=== PATIENT | female | born 1980 | race Caucasian/White ===

== ENCOUNTER → 2017-06-28 | Outpatient (REF) | payer OTHER ==
[~2017-06-28] MED LIST: IBUP80TA PO; PERC5TAB PO
== END ==
LOC: M LAB REF 13:05
PROVIDERS: ATTEND Obstetrics & Gynecology
DX: Z12.4 Encounter for screening for malignant neoplasm of cervix (principal)

== ENCOUNTER 2019-08-17 11:39 | Observation (INO) | payer OTHER ==
[~2019-08-17] VITALS: Ht 160 cm; Wt 86.8 kg
[2019-08-17 12:38] LABS: BASO # 0.1 10^3/uL (0.0-0.2); BASO % 0.5 % (0.0-1.0); EOS # 0.1 10^3/uL (0.0-0.5); EOS % 0.9 % (0.0-3.0); HEMATOCRIT 44.5 % (36.0-47.0); HEMOGLOBIN 14.4 g/dl (12.0-15.5); LYMPH # 1.9 10^3/uL (1.5-5.0); LYMPH % 18.6 % (24.0-44.0); MEAN CORPUSCULAR HEMOGLOBIN 29.7 pg (27.0-33.0); MEAN CORPUSCULAR HGB CONC 32.4 g/dl (32.0-36.5); MEAN CORPUSCULAR VOLUME 91.8 fl (80.0-96.0); MONO # 0.7 10^3/uL (0.0-0.8); MONO % 6.3 % (0.0-5.0); NEUTROPHILS # 7.7 10^3/uL (1.5-8.5); NEUTROPHILS % 73.4 % (36.0-66.0); PLATELET COUNT, AUTOMATED 289 10^3/uL (150-450); RED BLOOD COUNT 4.85 10^6/uL (4.00-5.40); WHITE BLOOD COUNT 10.4 10^3/uL (4.0-10.0)
[2019-08-17 13:07] LABS: ALBUMIN 3.8 GM/DL (3.2-5.2); BILIRUBIN,DIRECT 0.1 MG/DL (0.0-0.2); BILIRUBIN,TOTAL 0.5 MG/DL (0.2-1.0); TOTAL PROTEIN 7.9 GM/DL (6.4-8.2)
--- NOTE | 2019-08-17 14:07 | REP ---
Pelvic sonography: History: Right lower quadrant pain. Question cyst. Findings: Transabdominal and transvaginal scanning are performed. Uterine dimensions are 9.6 x 3.9 x 4.3 cm. Endometrial echo contains linear shadowing IUD in good position. No free fluid is seen. Visualized bladder diallo are smooth. Normal ovaries are seen bilaterally. Right ovarian dimensions are 3.2 x 2.1 x 1.9 cm. Left ovary measures 2.7 x 1.6 x 1.5 cm. Doppler flow is normal to both ovaries. Resistive indices are 0.53 and 0.37 on the right and left respectively. Impression: IUD in good position. Unremarkable ovaries. Normal pelvic sonography. Electronically Signed by René Lozoya MD 08/17/2019 02:20 P
[2019-08-17] MEDS ORDERED: ISOVUE-370 76% 100ML VIAL (Q9967) As Ordered ONE (14:22)
--- NOTE | 2019-08-17 15:02 | REP ---
CT abdomen and pelvis with IV but without oral contrast: History: Right lower quadrant pain. CT contrast dose: 100 ml of intravenous Isovue [address] findings: Digital preliminary camp assistant radiograph demonstrates an intrauterine device projecting in the pelvis. Bowel gas pattern is normal. The lung bases are clear on axial CT images. There is moderate diffuse fatty infiltration of the liver. No focal liver lesion is seen. Spleen is unremarkable. No adrenal lesion is observed. No abnormalities noted in the pancreas or gallbladder. There is a small accessory splenule. There is an obstructive nephrogram effecting the right kidney and there is moderate right-sided hydronephrosis due to an obstructing calculus in the mid ureter at the level of the pelvic inlet. This calculus measures 9.5 mm in greatest diameter. There is periureteral and perinephric stranding. No intrarenal calculus is noted on the right. However, there is a nonobstructive calculus in the lower pole collecting system of the left kidney which measures 6 mm. A normal appendix is seen in the right lower quadrant. No bladder calculus is seen. No abdominal wall defect is observed. No bony destructive lesion is appreciated. Impression: 9.5 mm obstructive right mid ureteral calculus at the pelvic inlet producing moderate right-sided hydronephrosis and an obstructive right-sided nephrogram. There is a 6 mm intrarenal calculus in the lower pole of the left kidney. No left-sided hydronephrosis is seen. IUD is noted. Fatty infiltration of the liver is present. Electronically Signed by René Lozoya MD 08/17/2019 04:06 P
[2019-08-17] MEDS ORDERED: MORPHINE 2 MG/ML 1ML VIAL (J2270) IV PRN (16:00)
[2019-08-17] MEDS ORDERED: NS 1,000 ML IV ONE (16:00)
[2019-08-17] MEDS ORDERED: LORazepam 2 MG/ML VIAL (J2060) IV STA (16:14)
[2019-08-17] MEDS: CIPROFLOXACIN 400 MG in IV 1 EA IV SCH (16:19)
[2019-08-17] MEDS: ONDANSETRON 4MG/2ML VIAL (J2405) IV SCH ×2 (16:19→20:25)
--- NOTE | 2019-08-17 16:21 | IPNPDOC ---
Subjective Date Seen The patient was seen on 08/17/19. Subjective Chief Complaint/HPI Patient complaining of right lower abdomen pain since last 1 week. Pain is sharp, mostly located in right lower right lower abdomen radiating towards back no association with nausea, vomiting, not relieved with meds not exacerbated by any position decided to come to ER. They she was diagnosed with right mid ureter calculus. Urology was called. Urology has advised to admit patient to the hospitalist service and procedure will be performed tonight to remove the stone. At the present time. Patient looks very anxious, crying in bed because of her personal reasons, as per patient, she is very anxious but pain has much resolved with the medications he was to go back to work as soon as possible. General: Denies: ROS Unobtainable, Chills, Night Sweats, Fatigue, Malaise, Normal Appetite, Other Symptoms Constitutional: Denies: Chills, Fever, Malaise, Night Sweats, Weakness, Fatigue, Weight Loss, Lethargy, Other Eyes: Denies: Pain, Vision change, Conjunctivae inflammation, Eyelid inflammation, Redness, Other ENT: Denies: Head Aches, Ear Pain, Dysphagia, Sinus Congestion, Post Nasal Drip, Sore Throat, Epistaxis, Other Symptoms Skin: Denies: Rash, Lesions, Jaundice, Bruising, Itching, Dry, Breakdown, Nail Changes, Other Pulmonary: Denies: Dyspnea, Cough, Pleuritic Chest Pain, Other Symptoms Cardiovascular: Denies: Chest Pain, Palpitations, Orthopnea, Paroxysmal Noc. Dyspnea, Edema, Lt Headedness, Other Symptoms Gastrointestinal: Reports: Other Symptoms (right lower quadrant pain) Genitourinary: Denies: Dysuria, Frequency, Incontinence, Hematuria, Retention, Other Symptoms Hematologic: Denies: Bruising, Bleeding Excessively, Petecchia, Purpura, Enlarged Lymph Nodes, Other Hematologic Endocrine: Denies: Polydipsia, Polyphagia, Polyuria, Heat Intolerance, Cold Intolerance, Other Endocrine Sx Musculoskeletal: Denies: Neck Pain, Back Pain, Shoulder Pain, Arm Pain, Hand Pain, Leg Pain, Foot Pain, Joint Pain, Muscle Pain, Spasms, Other Symptoms Neurological: Denies: Weakness, Numbness, Incoordination, Change in speech, Confusion, Seizures, Other Symptoms Psych: Reports: Anxiety Objective Physical Examination General Exam: Positive: Alert, Cooperative, Other (anxious) Eye Exam: Positive: PERRLA, Conjunctiva & lids normal ENT Exam: Positive: Atraumatic Neck Exam: Positive: Supple Chest Exam: Positive: Clear to auscultation, Normal air movement Heart Exam: Positive: Rate Normal, Normal S1, Normal S2 Abdomen Exam: Positive: Normal bowel sounds, Soft, Tenderness Extremity Exam: Positive: Normal pulses Skin Exam: Positive: Nl turgor and temperature Neuro Exam: Positive: Strength at 5/5 X4 ext, Sensation Intact Psych Exam: Positive: Mental status NL, Oriented x 3 Assessment /Plan Problems (1) Ureterolithiasis Status: Acute Problem Text: 39 years old white female with past medical history of no significant disease status post C-sections 3, presented with right lower quadrant pain and was diagnosed with right midureter calculus and admitted for possible cystoscopy tonight. Admit patient to MedSurg floor IVF normal saline 150 mL per hour Zofran 4 mg IV every 4 hours when necessary Morphine sulfate 2 mg IV every 4 hours when necessary Ativan 0.5 mg IV 1 dose Cipro 400 mg IV every 12 hours Urology consult was called from ED and Dr. Moffett will take patient or for cystoscopy, ureteroscopy, possible lithotripsy Bilateral SCDs for DVT prophylaxis Nothing by mouth Activity as tolerated (2) UTI (urinary tract infection) Status: Acute Problem Text: Possible mild UTI on UA, Cipro 400 mg IV every 12 hours Plan/VTE VTE Prophylaxis Ordered?: Yes VS, I&O, 24H, Fishbone Vital Signs/I&O Vital Signs Date Time Temp Pulse Resp B/P (MAP) Pulse Ox O2 Delivery O2 Flow Rate FiO2 08/17/19 15:23 96.5 63 20 136/82 (100) 100 Room Air Laboratory Data 24H LABS Laboratory Tests 2 08/17/19 12:04: Urine Color YELLOW, Urine Appearance CLEAR, Urine pH 5.0, Urine Specific [place] 1.017, Urine Protein NEGATIVE, Urine Glucose (UA) NEGATIVE, Urine Ketones NEGATIVE, Urine Blood NEGATIVE, Urine Nitrite NEGATIVE, Urine Bilirubin NEG ATIVE, Urine Urobilinogen 0.2, Urine Leukocyte Esterase 1+H, Urine WBC (Auto) 10H, Urine RBC (Auto) 1, Urine Hyaline Casts (Auto) 0, Urine Bacteria (Auto) NEGATIVE, Urine Squamous Epithelial Cells 1, Urine Sperm (Auto) 08/17/19 12:24: Immature Granulocyte % (Auto) 0.3, Neutrophils (%) (Auto) 73.4H, Lymphocytes (%) (Auto) 18.6L, Monocytes (%) (Auto) 6.3H, Eosinophils (%) (Auto) 0.9, Basophils (%) (Auto) 0.5, Neutrophils # (Auto) 7.7, Lymphocytes # (Auto) 1.9, Monocytes # (Auto) 0.7, Eosinophils # (Auto) 0.1, Basophils # (Auto) 0.1, Nucleated Red Blood Cells % (auto) 0.0, Total Bilirubin 0.5, Direct Bilirubin 0.1, Aspartate Amino Transf (AST/SGOT) 29, Alanine Aminotransferase (ALT/SGPT) 56, Alkaline Phosphatase 84, Total Protein 7.9, Albumin 3.8, Albumin/Globulin Ratio 0.93L, Lipase 136 08/17/19 12:29: POC Glucose (Misc Panel) 86, POC Sodium (Misc Panel) 141, POC Potassium (Misc Panel) 4.4, POC Chloride (Misc Panel) 107, POC Total CO2 (Misc Panel) 22.0L, POC Blood Urea Nitrogen (Misc Panel 14, POC Ionized Calcium (Misc Panel) 4.6, POC Creatinine (Misc Panel) 1.3, POC Hematocrit (Misc Panel) 44.0 08/17/19 12:32: POC Beta HCG, Quantitative < 5.0 CBC/BMP Laboratory Tests 08/17/19 12:24 Microbiology Microbiology 08/17/19 Urine Culture, Received Pending BIBIANA RUBY MD Aug 17, 2019 16:21
--- NOTE | 2019-08-17 16:24 | HPEPDOC ---
General Date of Admission Aug 17, 2019 at 11:40 Date of Service: Aug 17, 2019 Chief Complaint The patient is a 39-year-old female admitted with a reason for visit of Ureterolithiasis. Source: Patient Exam Limitations: No limitations Timing/Duration: Other Severity: Severe (1 week) Associated Symptoms: Other (, abdominal pain) History of Present Illness Patient complaining of right lower abdomen pain since last 1 week. Pain is sharp, mostly located in right lower right lower abdomen radiating towards back no association with nausea, vomiting, not relieved with meds not exacerbated by any position decided to come to ER. They she was diagnosed with right mid ureter calculus. Urology was called. Urology has advised to admit patient to the hospitalist service and procedure will be performed tonight to remove the stone. At the present time. Patient looks very anxious, crying in bed because of her personal reasons, as per patient, she is very anxious but pain has much resolved with the medications he was to go back to work as soon as possible. Home Medications No Active Prescriptions or Reported Meds Allergies Coded Allergies: Sulfa (Sulfonamide Antibiotics) (Verified Adverse Reaction, Unknown, gi upset, 08/17/19) Past Medical History Medical History None Surgical History 3 C-sections Family History Significant Family History: No pertinent family hx Social History * Smoker: Denies Alcohol: Denies Drugs: denies A-FIB/CHADSVASC A-FIB History Current/History of A-Fib/PAF?: No Review of Systems Constitutional: Denies: Chills, Fever, Malaise, Night Sweats, Weakness, Fatigue, Weight Loss, Lethargy, Other Eyes: Denies: Pain, Vision change, Conjunctivae inflammation, Eyelid inflammation, Redness, Other ENT: Denies: Head Aches, Ear Pain, Dysphagia, Sinus Congestion, Post Nasal Drip, Sore Throat, Epistaxis, Other Symptoms Skin: Denies: Rash, Lesions, Jaundice, Bruising, Itching, Dry, Breakdown, Nail Changes, Other Pulmonary: Denies: Dyspnea, Cough, Pleuritic Chest Pain, Other Symptoms Cardiovascular: Denies: Chest Pain, Palpitations, Orthopnea, Paroxysmal Noc. Dyspnea, Edema, Lt Headedness, Other Symptoms Gastrointestinal: Reports: Abdominal Pain Genitourinary: Denies: Dysuria, Frequency, Incontinence, Hematuria, Retention, Other Symptoms Hematologic: Denies: Bruising, Bleeding Excessively, Petecchia, Purpura, Enlarged Lymph Nodes, Other Hematologic Musculoskeletal: Denies: Neck Pain, Back Pain, Shoulder Pain, Arm Pain, Hand Pain, Leg Pain, Foot Pain, Joint Pain, Muscle Pain, Spasms, Other Symptoms Neurological: Denies: Weakness, Numbness, Incoordination, Change in speech, Confusion, Seizures, Other Symptoms Psych: Denies: Mood Normal, Anxiety, Depression, Memory Issues, Thoughts of Self Harm, Anger, Thoughts of Harming Other, Other Psych Physical Examination General Exam: Positive: Alert, Cooperative, Other (anxious) Eye Exam: Positive: PERRLA, Conjunctiva & lids normal ENT Exam: Positive: Atraumatic Neck Exam: Positive: Supple Chest Exam: Positive: Clear to auscultation, Normal air movement Heart Exam: Positive: Rate Normal, Normal S1, Normal S2 Abdomen Exam: Positive: Normal bowel sounds, Soft, Tenderness (. Mild tenderne ss is right lower quadrant on palpation) Extremity Exam: Positive: Normal pulses Skin Exam: Positive: Nl turgor and temperature Neuro Exam: Positive: Strength at 5/5 X4 ext, Sensation Intact Psych Exam: Positive: Mental status NL, Oriented x 3 Vital Signs Vital Signs Date Time Temp Pulse Resp B/P (MAP) Pulse Ox O2 Delivery O2 Flow Rate FiO2 08/17/19 15:23 96.5 63 20 136/82 (100) 100 Room Air Laboratory Data Labs 24H Laboratory Tests 2 08/17/19 12:04: Urine Color YELLOW, Urine Appearance CLEAR, Urine pH 5.0, Urine Specific [place] 1.017, Urine Protein NEGATIVE, Urine Glucose (UA) NEGATIVE, Urine Ketones NEGATIVE, Urine Blood NEGATIVE, Urine Nitrite NEGATIVE, Urine Bilirubin NEGATIVE, Urine Urobilinogen 0.2, Urine Leukocyte Esterase 1+H, Urine WBC (Auto) 10H, Urine RBC (Auto) 1, Urine Hyaline Casts (Auto) 0, Urine Bacteria (Auto) NEGATIVE, Urine Squamous Epithelial Cells 1, Urine Sperm (Auto) 08/17/19 12:24: Immature Granulocyte % (Auto) 0.3, Neutrophils (%) (Auto) 73.4H, Lymphocytes (%) (Auto) 18.6L, Monocytes (%) (Auto) 6.3H, Eosinophils (%) (Auto) 0.9, Basophils (%) (Auto) 0.5, Neutrophils # (Auto) 7.7, Lymphocytes # (Auto) 1.9, Monocytes # (Auto) 0.7, Eosinophils # (Auto) 0.1, Basophils # (Auto) 0.1, Nucleated Red Blood Cells % (auto) 0.0, Total Bilirubin 0.5, Direct Bilirubin 0.1, Aspartate Amino Transf (AST/SGOT) 29, Alanine Aminotransferase (ALT/SGPT) 56, Alkaline Phosphatase 84, Total Protein 7.9, Albumin 3.8, Albumin/Globulin Ratio 0.93L, Lipase 136 08/17/19 12:29: POC Glucose (Misc Panel) 86, POC Sodium (Misc Panel) 141, POC Potassium (Misc Panel) 4.4, POC Chloride (Misc Panel) 107, POC Total CO2 (Misc Panel) 22.0L, POC Blood Urea Nitrogen (Misc Panel 14, POC Ionized Calcium (Misc Panel) 4.6, POC Creatinine (Misc Panel) 1.3, POC Hematocrit (Misc Panel) 44.0 08/17/19 12:32: POC Beta HCG, Quantitative < 5.0 CBC/BMP Laboratory Tests 08/17/19 12:24 Microbiology Microbiology 08/17/19 Urine Culture, Received Pending Problems (1) Ureterolithiasis Status: Acute Problem Text: 39 years old white female with past medical history of no significant disease status post C-sections 3, presented with right lower quadrant pain and was diagnosed with right midureter calculus and admitted for possible cystoscopy tonight. Admit patient to MedSurg floor IVF normal saline 150 mL per hour Zofran 4 mg IV every 4 hours when necessary Morphine sulfate 2 mg IV every 4 hours when necessary Ativan 0.5 mg IV 1 dose Cipro 400 mg IV every 12 hours Urology consult was called from ED and Dr. Moffett will take patient or for cystoscopy, ureteroscopy, possible lithotripsy Bilateral SCDs for DVT prophylaxis Nothing by mouth Activity as tolerated (2) UTI (urinary tract infection) Status: Acute Problem Text: Possible mild UTI on UA, Cipro 400 mg IV every 12 hours Plan / VTE VTE Prophylaxis Ordered?: Yes BIBIANA RUBY MD Aug 17, 2019 16:24
[2019-08-17 18:09] VITALS: BP 131/65
[2019-08-17] MEDS: NS 1,000 ML IV SCH ×2 (18:17→22:44)
--- NOTE | 2019-08-17 19:09 | SMCUROLCON ---
Urology Consultation General Date of Consultation 08/17/19 Reason For Consultation This patient is seen for Ureterolithiasis. History of Present Illness The patient is a 39-year-old white female with no past medical history for calculi. Past Medical History Medical History No prior medical problems Surgical Hstory Patient has had 3 C-sections Family History Significant Family History: No pertinent family hx Social History * Smoker: non-smoker Alcohol: occationally Drugs: denies Medications Current Medications Current Medications Medications (Trade) Dose Ordered Sig/Mesfin Route PRN Reason Start Time Stop Time Status Last Admin Dose Admin Ciprofloxacin 400 mg/IV Miscellaneous Supplies 200 ml @ 200 mls/hr Q12H IV 08/17/19 16:00 08/17/19 16:19 Home Med (Med Rec Complete!) ASDIRECTED XX 08/17/19 15:45 08/17/19 15:49 DC Lactated Ringer's 1,000 ml @ 100 mls/hr Q10H IV 08/18/19 06:00 08/18/19 15:59 Cancel Lactated Ringer's 1,000 ml @ 125 mls/hr Q8H IV 08/18/19 06:00 Cancel Lorazepam (Ativan) 0.5 mg STAT STAT IV 08/17/19 16:14 08/17/19 16:15 DC 08/17/19 16:28 Morphine Sulfate (Morphine Sulfate Inj) 2 mg Q4H PRN IV MODERATE PAIN (PS 5-7) 08/17/19 16:00 Ondansetron HCl (ZOFRAN INJection) 4 mg Q4H IV 08/17/19 16:00 08/17/19 16:19 Sodium Chloride 1,000 ml @ 150 mls/hr Q6H40M IV 08/17/19 16:00 08/17/19 18:17 Allergies Allergies: Coded Allergies: Sulfa (Sulfonamide Antibiotics) (Verified Adverse Reaction, Unknown, gi upset, 08/17/19) Review of Systems General: Denies: ROS Unobtainable, Chills, Night Sweats, Fatigue, Malaise, Normal Appetite, Other Symptoms Constitutional: Denies: Fever, Chills, Sweats, Weakness, Malaise, Other Eyes: Denies: Pain, Vision change, Conjunctivae inflammation, Eyelid inflam mation, Redness, Other ENT: Denies: Head Aches, Ear Pain, Dysphagia, Sinus Congestion, Post Nasal Drip, Sore Throat, Epistaxis, Other Symptoms Skin: Denies: Rash, Lesions, Jaundice, Bruising, Itching, Dry, Breakdown, Nail Changes, Other Pulmonary: Denies: Dyspnea, Cough, Pleuritic Chest Pain, Other Symptoms Cardiovascular: Denies Chest Pain, Denies Palpitations, Denies Orthopnea, Denies Paroxysmal Noc. Dyspnea, Denies Edema, Denies Lt Headedness, Denies Other Symptoms Gastrointestinal: Denies: Nausea, Vomiting, Abdominal Pain, Diarrhea, Constipation, Melena, Hematochezia, Other Symptoms Genitourinary: Denies: Dysuria, Frequency, Incontinence, Hematuria, Retention, Other Symptoms Hematologic: Denies: Bruising, Bleeding Excessively, Petecchia, Purpura, Enlarged Lymph Nodes, Other Hematologic Endocrine: Denies: Polydipsia, Polyphagia, Polyuria, Heat Intolerance, Cold Intolerance, Other Endocrine Sx Musculoskeletal: Denies: Neck Pain, Back Pain, Shoulder Pain, Arm Pain, Hand Pain, Leg Pain, Foot Pain, Joint Pain, Muscle Pain, Spasms, Other Symptoms Neurological: Denies: Weakness, Numbness, Incoordination, Change in Speech, Confusion, Seizures, Other Symptoms Psych: Denies: Mood Normal, Anxiety, Depression, Memory Issues, Thoughts of Self Harm, Anger, Thoughts of harming Other, Other Psych Physical Examination General Exam: Cooperative, Mild Distress, Moderate Distress EYE EXAM: PERRLA, Conjunctiva & lids normal; No: EOMI, Sclera icteric, Ptosis, Other Eye Symptoms ENT EXAM: No: Atraumatic, Mucous membr. moist/pink, Pharynx Normal, Tongue Midline, Pharyngeal Edema, Nares Patent, Tympanic Membranes Normal, Ext Auditory Canal Nml, Pinna Normal, Other ENT Neck Exam: No: Supple, JVD, thyromegaly, +2 carotid pulse wo bruit, Lymphadenopathy, Other Chest Exam: No: Clear to auscultation, Normal air movement, Rales, Rhonchi, Wheezing, Diminished, Other Heart Exam: No: Rate Normal, Tachycardic, Bradycardic, Regular Rhythm, Irregular Rhythm, Normal S1, Normal S2, Gallops, Murmurs, Rubs, Other Abdomen Exam: Other (Some right lower quadrant discomfort due to the ureteral stone); No: Normal Bowel Sounds, BS Hyperactive, BS Hypoactive, Soft, Tenderness, Hepatospenomegaly, Mass, Hernia Male Exam: No: Normal Genital Exam, Lesions, Edema, Erythema, Tenderness, Discharge, Mass, Hernia, Normal Sphincter Tone Female Exam: Nl Ext Genitalia; No: Normal Cervical Exam, Lesions, Discharge, Odor, Tenderness, Nl Rectal Sphincter Tone Extremity Exam: No: Clubbing, Cyanosis, Edema, Normal Pulses, Tenderness, Swelling, Other Skin Exam: No: Nl turgor and temperature, Rash, Breakdown, Lesion, Pruritus, Other skin issue Neuro Exam: No: Normal Gait, Normal Speech, Strength at 5/5 X4 ext, Normal Tone, Sensation Intact, Cranial Nerves 3-12 NL, Reflexes 2+, Other Psych Exam: No: Mental status NL, Mood NL, Anxiety, Memory Intact, Oriented x 3, Other Vital Signs/I&O Vital Signs Date Time Temp Pulse Resp B/P (MAP) Pulse Ox O2 Delivery O2 Flow Rate FiO2 08/17/19 18:09 97.8 76 18 131/65 (87) 99 Room Air Laboratory Data 24H Labs Laboratory Tests 2 08/17/19 12:04: Urine Color YELLOW, Urine Appearance CLEAR, Urine pH 5.0, Urine Specific [place] 1.017, Urine Protein NEGATIVE, Urine Glucose (UA) NEGATIVE, Urine Ketones NEGATIVE, Urine Blood NEGATIVE, Urine Nitrite NEGATIVE, Urine Bilirubin NEGATIVE, Urine Urobilinogen 0.2, Urine Leukocyte Esterase 1+H, Urine WBC (Auto) 10H, Urine RBC (Auto) 1, Urine Hyaline Casts (Auto) 0, Urine Bacteria (Auto) NEGATIVE, Urine Squamous Epithelial Cells 1, Urine Sperm (Auto) 08/17/19 12:24: Immature Granulocyte % (Auto) 0.3, Neutrophils (%) (Auto) 73.4H, Lymphocytes (%) (Auto) 18.6L, Monocytes (%) (Auto) 6.3H, Eosinophils (%) (Auto) 0.9, Basophils (%) (Auto) 0.5, Neutrophils # (Auto) 7.7, Lymphocytes # (Auto) 1.9, Monocytes # (Auto) 0.7, Eosinophils # (Auto) 0.1, Basophils # (Auto) 0.1, Nucleated Red Blood Cells % (auto) 0.0, Total Bilirubin 0.5, Direct Bilirubin 0.1, Aspartate Amino Transf (AST/SGOT) 29, Alanine Aminotransferase (ALT/SGPT) 56, Alkaline Phosphatase 84, Total Protein 7.9, Albumin 3.8, Albumin/Globulin Ratio 0.93L, Lipase 136 08/17/19 12:29: POC Glucose (Misc Panel) 86, POC Sodium (Misc Panel) 141, POC Potassium (Misc Pa tej) 4.4, POC Chloride (Misc Panel) 107, POC Total CO2 (Misc Panel) 22.0L, POC Blood Urea Nitrogen (Misc Panel 14, POC Ionized Calcium (Misc Panel) 4.6, POC Creatinine (Misc Panel) 1.3, POC Hematocrit (Misc Panel) 44.0 08/17/19 12:32: POC Beta HCG, Quantitative < 5.0 CBC/BMP Laboratory Tests 08/17/19 12:24 Microbiology Microbiology 08/17/19 Urine Culture, Received Pending Assessment 8 mm mid right ureteral calculus with hydroureteronephrosis Plan Patient was admitted to the hospital for pain control and will be taken to the operating room this evening for ureteral stent insertion and possible ureteroscopic laser lithotripsy Time Spent on Consult: Time Spent / Consult (Minutes): 55 MITUL STOREY MD Aug 17, 2019 19:09
[2019-08-17 20:34] VITALS: BP 125/79
[2019-08-18] VITALS (7 sets, daily range): BP systolic 100–118; BP diastolic 56–76
[2019-08-18] MEDS ORDERED: ceFAZolin SOD 2 GM in IV 1 EA IV ONE ×2 (00:30→06:00)
[2019-08-18] MEDS ORDERED: LIDOCAINE 2% INJ 100 MG/5 ML SDV (FOR ANES.) As Ordered ONE (00:54)
[2019-08-18] MEDS ORDERED: PROPOFOL 200 MG/20 ML VIAL As Ordered ONE (00:54)
[2019-08-18] MEDS ORDERED: dexameTHASONE 4 MG/ML 1ML VIAL (J1100) As Ordered ONE (00:55)
[2019-08-18] MEDS ORDERED: MIDAZOLAM INJ 2 MG/2 ML VIAL (J2250) As Ordered ONE (00:55)
[2019-08-18] MEDS ORDERED: fentaNYL 100 MCG/2 ML INJECTION (J3010) As Ordered ONE ×2 (00:55→02:11)
[2019-08-18] MEDS ORDERED: ONDANSETRON 4MG/2ML VIAL (J2405) As Ordered ONE ×2 (00:55→02:11)
[2019-08-18] MEDS ORDERED: ceFAZolin 2 GM/D5W 50 ML IV BAG (J0690 PER 500MG) As Ordered ONE (01:25)
[2019-08-18] MEDS ORDERED: CONRAY-60 60% 50ML VIAL (Q9961) As Ordered ONE (01:26)
[2019-08-18] MEDS ORDERED: oxyCODONE 5MG TAB PO PRN (01:45)
[2019-08-18] MEDS ORDERED: LR 1,000 ML IV SCH ×3 (01:45→06:00)
[2019-08-18] MEDS ORDERED: fentaNYL 100 MCG/2 ML INJECTION (J3010) IV PRN (01:45)
[2019-08-18] MEDS ORDERED: METOCLOPRAMIDE INJ 10MG/2ML VIAL (J2765) IV PRN (01:45)
[2019-08-18] MEDS ORDERED: MEPERIDINE INJ 25 MG/ML VIAL (J2175) IV PRN (01:45)
[2019-08-18] MEDS ORDERED: ONDANSETRON 4MG/2ML VIAL (J2405) IV PRN ×2 (01:45→02:45)
[2019-08-18] MEDS ORDERED: KETOROLAC 60 MG/2 ML VIAL (J1885) As Ordered ONE (01:49)
[2019-08-18] MEDS ORDERED: oxyCODONE 5MG TAB As Ordered ONE (02:11)
--- NOTE | 2019-08-18 02:23 | ROPEDSPDOC ---
NICU Report Of Operation Report of Operation DATE OF PROCEDURE: 08/18/19 PREPROCEDURE DIAGNOSIS: Right ureteral calculus with hydronephrosis. POSTPROCEDURE DIAGNOSIS: Right ureteral calculus with hydronephrosis, edema and inflammation. PROCEDURE PROPOSED: Cystoscopy, right retrograde pyelogram, ureteroscopic laser lithotripsy and stent insertion. PROCEDURE: Cystoscopy, right retrograde pyelogram, ureteroscopy and stent insertion SURGEON: Bean Moffett M.D. WASH RACK OPERATOR: None. ANESTHESIA: Gen. ESTIMATED BLOOD LOSS: Less than 10 mL. DESCRIPTION OF PROCEDURE: The patient was placed on the table in the supine position and given general anesthesia. She was then placed in the lithotomy position, prepped with Betadine paint and draped in an aseptic manner. A timeout was then performed. A rigid ureteroscope was then inserted into the meatus and advanced under direct vision of a 30 lens to the bladder. The bladder mucosa was evaluated and found to be normal. Ureteral orifice was then catheterized with a 5 Czech open-ended catheter and retrograde injection of Conray showed obstruction at the mid ureter with no contrast coursing proximally. A wire guide was then able to be passed around the stone and left in place as the cystoscope was removed and exchanged for the semirigid ureteroscope. Ureteroscope was advanced up to the stone with the aid of a working wire. The stone was encountered in the mid ureter, but it was surrounded by extremely edematous tissue. The decision was then made to simply leave a stent in place and return in 2 weeks for lithotripsy. The ureteroscope was then removed and exchanged for a cystoscope, which was advanced over the safety wire. A 6 Czech double-J stent was then passed over this wire and start seen to curl well in the renal pelvis and in the bladder when the wire was removed. The bladder was then drained, cystoscope was removed and the patient was awakened and sent to recovery room in stable condition having tolerated the procedure well. DRAINS: 6 Czech double-J stent. SPECIMEN: None. FINDINGS: As above BEAN MOFFETT MD Aug 18, 2019 02:23
[2019-08-18] MEDS ORDERED: NS 1,000 ML IV SCH (03:00)
[2019-08-18] MEDS: CIPROFLOXACIN 400 MG in IV 1 EA IV SCH (03:41)
--- NOTE | 2019-08-18 06:45 | REP ---
Clinical: Stent placement. Technique: Single fluoroscopy image. Findings: Right ureteral stent identified in seemingly satisfactory position. Bowel gas pattern is nonspecific. Skeletal structures are intact. Total fluoroscopic time 11 seconds. Impression: Status post right ureteral stent placement. Electronically Signed by Karthik Lynn MD 08/18/2019 06:36 A
[2019-08-18] MEDS ORDERED: IBUPROFEN 600 MG TAB PO PRN (07:00)
[2019-08-18] MEDS ORDERED: PYRI1TAB5 PO (09:58)
[2019-08-18] MEDS ORDERED: IBUP-1022 PO (09:58)
[2019-08-18] MEDS ORDERED: CIPR-249 PO (09:58)
--- NOTE | 2019-08-18 10:54 | DS.PDOC ---
Discharge Summary General Date of Admission Aug 17, 2019 at 11:40 Date of Discharge 08/18/19 Discharge Summary PROCEDURES PERFORMED DURING STAY: None. ADMITTING DIAGNOSES: 1. Abdominal pain DISCHARGE DIAGNOSES: 1. Right uretral lithiasis, status post Rt uretral stent placement. COMPLICATIONS/CHIEF COMPLAINT: Ureterolithiasis. HISTORY OF PRESENT ILLNESS: Patient complaining of right lower abdomen pain since last 1 week. Pain is sharp, mostly located in right lower right lower abdomen radiating towards back no association with nausea, vomiting, not relieved with meds not exacerbated by any position decided to come to ER. They she was diagnosed with right mid ureter calculus. Urology was called. Urology has advised to admit patient to the hospitalist service and procedure will be performed tonight to remove the stone. At the present time. Patient looks very anxious, crying in bed because of her personal reasons, as per patient, she is very anxious but pain has much resolved with the medications he was to go back to work as soon as possible.. HOSPITAL COURSE: Patient was admitted with the diagnosis of right ureteral calculus which is about 10 mm measurement. Patient was admitted to medical floor, started on IV fluids, pain management and was kept nothing by mouth. Patient was seen by Dr. Moffett for urology and subsequently had a retrograde pyelogram and cystoscopy done but he was unable to remove the stone secondary to surrounding edema and stent was placed in and patient will follow with Dr. Moffett in 2 weeks for lithotripsy. Patient is completely asymptomatic at the present time, had some dysuria for which she is been started on by mouth antibiotics and Pyridium. Patient will be discharged home today. DISCHARGE MEDICATIONS: Please see below. ALLERGIES: Please see below. PHYSICAL EXAMINATION ON DISCHARGE: VITAL SIGNS: Please see below. GENERAL: Within normal limits HEENT: PERRLA. Extraocular muscles intact NECK: Supple. Negative JVD, negative lymphadenopathy CARDIOVASCULAR EXAMINATION: S1, S2, regular RESPIRATORY EXAMINATION: Clear to A&P ABDOMINAL EXAMINATION: , Soft, nontender. Bowels are present. No organomegaly EXTREMITIES: No clubbing, cyanosis or edema SKIN: Within normal limits NEUROLOGICAL EXAMINATION: . No focal motor sensory deficit PSYCHIATRIC EXAMINATION: Normal LABORATORY DATA: Please see below. IMAGING: . Retriero-grade Pyelogram:Impression: Status post right ureteral stent placement. PROGNOSIS: Good ACTIVITY: As tolerated. DIET: As tolerated DISCHARGE PLAN: Follow with urology in 2 weeks DISPOSITION: . Home DISCHARGE INSTRUCTIONS: 1. As per discharge instructions. ITEMS TO FOLLOWUP ON ON OUTPATIENT: 1. Follow with Dr. Moffett in 2 weeks. DISCHARGE CONDITION: Stable. TIME SPENT ON DISCHARGE: 43 minutes. Vital Signs/I&Os Vital Signs Date Time Temp Pulse Resp B/P (MAP) Pulse Ox O2 Delivery O2 Flow Rate FiO2 08/18/19 07:40 98.5 69 16 111/63 (79) 97 Room Air I&O- Last 24 Hours up to 6 AM 08/18/19 06:00 Intake Total 2360 ml Output Total 550 ml Balance 1810 ml Laboratory Data Labs 24H Laboratory Tests 2 08/17/19 12:04: Urine Color YELLOW, Urine Appearance CLEAR, Urine pH 5.0, Urine Specific [place] 1.017, Urine Protein NEGATIVE, Urine Glucose (UA) NEGATIVE, Urine Ketones NEGATIVE, Urine Blood NEGATIVE, Urine Nitrite NEGATIVE, Urine Bilirubin N EGATIVE, Urine Urobilinogen 0.2, Urine Leukocyte Esterase 1+H, Urine WBC (Auto) 10H, Urine RBC (Auto) 1, Urine Hyaline Casts (Auto) 0, Urine Bacteria (Auto) NEGATIVE, Urine Squamous Epithelial Cells 1, Urine Sperm (Auto) 08/17/19 12:24: Immature Granulocyte % (Auto) 0.3, Neutrophils (%) (Auto) 73.4H, Lymphocytes (%) (Auto) 18.6L, Monocytes (%) (Auto) 6.3H, Eosinophils (%) (Auto) 0.9, Basophils (%) (Auto) 0.5, Neutrophils # (Auto) 7.7, Lymphocytes # (Auto) 1.9, Monocytes # (Auto) 0.7, Eosinophils # (Auto) 0.1, Basophils # (Auto) 0.1, Nucleated Red Blood Cells % (auto) 0.0, Total Bilirubin 0.5, Direct Bilirubin 0.1, Aspartate Amino Transf (AST/SGOT) 29, Alanine Aminotransferase (ALT/SGPT) 56, Alkaline Phosphatase 84, Total Protein 7.9, Albumin 3.8, Albumin/Globulin Ratio 0.93L, Lipase 136 08/17/19 12:29: POC Glucose (Misc Panel) 86, POC Sodium (Misc Panel) 141, POC Potassium (Misc Panel) 4.4, POC Chloride (Misc Panel) 107, POC Total CO2 (Misc Panel) 22.0L, POC Blood Urea Nitrogen (Misc Panel 14, POC Ionized Calcium (Misc Panel) 4.6, POC Creatinine (Misc Panel) 1.3, POC Hematocrit (Misc Panel) 44.0 08/17/19 12:32: POC Beta HCG, Quantitative < 5.0 CBC/BMP Laboratory Tests 08/17/19 12:24 Microbiology Microbiology 08/17/19 Urine Culture - Final, Complete Discharge Medications Scheduled Ciprofloxacin HCl (Cipro) 500 Mg Tablet, 500 MG PO BID Phenazopyridine HCl (Pyridium) 200 Mg Tablet, 1 TAB PO TID for urinary discomfort Scheduled PRN Ibuprofen (Ibuprofen) 600 Mg Tablet, 600 MG PO Q6HP PRN for PAIN Allergies Coded Allergies: Sulfa (Sulfonamide Antibiotics) (Verified Adverse Reaction, Unknown, gi upset, 08/17/19) BIBIANA RUBY MD Aug 18, 2019 10:54
== END 2019-08-18 11:19 | disposition home or self-care (01) ==
LOC: M ED 11:39 → M ED INP 11:40 → M MS4PR 18:00
PROVIDERS: ADMIT Internal Medicine; ATTEND Internal Medicine
DX: N13.2 Hydronephrosis with renal and ureteral calculous obstruction (principal); E66.9 Obesity, unspecified; Z88.2 Allergy status to sulfonamides
CPT/HCPCS: 36415; 52332; 74177; 74420; 76830; 76856; 80047; 80076; 81001; 83690; 84702; 85025; 87086; 93976; 96361; 96365; 96366; 96375; 96376; 99284; C2617; J0690; J0744; J1100; J1885; J2060; J2250; J2405; J3010; Q9961; Q9967

== ENCOUNTER → 2019-09-21 | Outpatient (REF) | payer OTHER ==
[~2019-09-21] MED LIST changes: +CIPR-249 PO; +IBUP-1022 PO; +MIRE1IUD IU; +PYRI1TAB5 PO
[2019-09-21 16:57] LABS: APPEARANCE, URINE CLOUDY (CLEAR); BACTERIA, URINE AUTO 1+ (NEGATIVE); BILIRUBIN, URINE AUTO NEGATIVE (NEGATIVE); BLOOD, URINE BLOOD 3+ (NEGATIVE); COLOR, URINE YELLOW (YELLOW); GLUCOSE, URINE (UA) AUTO NEGATIVE (NEGATIVE); KETONE, URINE AUTO NEGATIVE (NEGATIVE); LEUKOCYTE ESTERASE, URINE AUTO 2+ (NEGATIVE); MUCUS, URINE SMALL (NEGATIVE); NITRITE, URINE AUTO NEGATIVE (NEGATIVE); PROTEIN, URINE AUTO 2+ mg/dL (NEGATIVE); RBC, URINE AUTO 93 /HPF (0-3); SPECIFIC GRAVITY URINE AUTO 1.025 (1.002-1.035); SQUAMOUS EPITHELIAL CELL UR AU 21 /HPF (0-6); UROBILINOGEN, URINE AUTO 0.2 mg/dL (0.0-2.0); WBC, URINE AUTO 19 /HPF (0-3)
== END ==
LOC: M SMT 16:38
PROVIDERS: ATTEND Nurse Practitioner Women's Health
DX: N13.2 Hydronephrosis with renal and ureteral calculous obstruction (principal)

== ENCOUNTER 2019-09-29 05:40 | Day surgery (SDC) | payer OTHER ==
[~2019-09-29] VITALS: Ht 160 cm; Wt 86.6 kg
[2019-09-29] MEDS ORDERED: LIDOCAINE 1% MDV 20ML VIAL SQ PRN (06:00)
[2019-09-29] MEDS ORDERED: LR 1,000 ML IV ONE (06:00)
[2019-09-29] MEDS ORDERED: LevoFLOXacin(LEVAQUIN)500 MG/100 ML BAG (J1956) As Ordered ONE (06:54)
[2019-09-29] MEDS ORDERED: LIDOCAINE 2% INJ 100 MG/5 ML SDV (FOR ANES.) As Ordered ONE (07:10)
[2019-09-29] MEDS ORDERED: fentaNYL 250 MCG/5 ML INJECTION (J3010) As Ordered ONE (07:10)
[2019-09-29] MEDS ORDERED: dexameTHASONE 4 MG/ML 1ML VIAL (J1100) As Ordered ONE (07:10)
[2019-09-29] MEDS ORDERED: MIDAZOLAM INJ 2 MG/2 ML VIAL (J2250) As Ordered ONE (07:10)
[2019-09-29] MEDS ORDERED: ONDANSETRON 4MG/2ML VIAL (J2405) As Ordered ONE (07:10)
[2019-09-29] MEDS ORDERED: PROPOFOL 200 MG/20 ML VIAL As Ordered ONE (07:10)
[2019-09-29] MEDS ORDERED: CONRAY-60 60% 50ML VIAL (Q9961) As Ordered ONE (07:13)
[2019-09-29] MEDS ORDERED: LevoFLOXacin IV 500 MG in IV 1 EA IV ONE (07:15)
--- NOTE | 2019-09-29 08:36 | REP ---
Clinical: Nephrolithiasis. Technique: Intraoperative fluoroscopic imaging. Findings: The patient is status post satisfactory right ureteral stent placement. Total fluoroscopic time 10 seconds. Impression: Status post satisfactory right ureteral stent placement. Electronically Signed by Karthik Lynn MD 09/29/2019 08:27 A
[2019-09-29] MEDS ORDERED: fentaNYL 100 MCG/2 ML INJECTION (J3010) IV PRN (08:45)
[2019-09-29] MEDS ORDERED: oxyCODONE 5MG TAB PO PRN (08:45)
[2019-09-29] MEDS ORDERED: PERCOCET 5MG/325MG TAB PO PRN (08:45)
[2019-09-29] MEDS ORDERED: ONDANSETRON 4MG/2ML VIAL (J2405) IV PRN (08:45)
[2019-09-29] MEDS ORDERED: LR 1,000 ML IV SCH (08:45)
[2019-09-29 10:15] VITALS: BP 113/78
--- NOTE | 2019-09-30 13:23 | RO ---
DATE OF PROCEDURE: 09/29/2019 PREPROCEDURE DIAGNOSIS: Right ureteral stone. POSTPROCEDURE DIAGNOSIS: Right ureteral stone. PROCEDURE: Cystoscopy, right ureteroscopy with laser lithotripsy and basket extraction of stones, right retrograde pyelogram with intraoperative interpretation of images, right ureteral stent exchange. SURGEON: Trace Jean MD PROGRAM PRODUCTION SPECIALIST: None. ANESTHESIA: General. OPERATIVE INDICATIONS: This is a 39-year-old female who had an approximately 8-9 mm right ureteral stone and was brought to the operating room a few weeks ago and had a stent placed here. She was brought to the operating room today for definitive treatment of her stone. DESCRIPTION OF PROCEDURE: The patient was brought to the operating room and general anesthesia was induced. Prophylactic antibiotics were infused. She was then placed in the dorsal lithotomy position and prepped and draped in the usual sterile fashion. A rigid cystoscope was inserted into the urethral meatus and advanced into the bladder. The previously placed stent was seen and then grasped. It was withdrawn until the distal end was seen protruding from the urethral meatus. I then advanced a guidewire up the stent and then removed the stent completely. I then advanced the ureteral access sheath over the wire into the right collecting system. I went up the ureteral access sheath with a flexible ureteroscope and within the mid ureter, the 9 mm stone was seen. The stone was then fragmented into smaller pieces using a 200 micron laser fiber. All the fragments were then removed using a basket. I then examined the more proximal ureter and the kidney and no additional stones were seen. A retrograde pyelogram was performed and notable for mild right hydronephrosis and no extravasation. I then withdrew the ureteral access sheath along with the ureteroscope and no additional stones were seen within the remainder of the ureter. I then utilized the wire to advance a 6-Salvadorean x 22-32 cm JJ ureteral stent into the right collecting system. The wire was removed, and there were adequate curls of the stent in the right renal pelvis and in the bladder. The bladder was emptied of all fluids and this marked the conclusion of the procedure. The patient was taken out of the dorsal lithotomy position, awakened from anesthesia and transported to the recovery room in stable condition. Estimated blood loss: 5 mL. Complications: None. Specimens: Kidney stone fragments. Plan: The patient will followup in the clinic in a week or two for stent removal.
== END 2019-09-29 10:20 | disposition home or self-care (01) ==
LOC: M SDC 05:40
PROVIDERS: ATTEND Urology
DX: N20.0 Calculus of kidney (principal); N20.1 Calculus of ureter; Z88.2 Allergy status to sulfonamides; Z87.891 Personal history of nicotine dependence
CPT/HCPCS: 52356; 74420; 81025; 82360; 88300; C1769; C2617; J1100; J1956; J2250; J2405; J3010; Q9961

== ENCOUNTER → 2021-06-24 | Outpatient (REF) | LOC: M EMP 15:56 | PROVIDERS: ATTEND Family Medicine | DX: Z11.52 Encounter for screening for COVID-19 (principal) ==

== ENCOUNTER → 2021-06-28 | Outpatient (REF) | LOC: M LABSMTC 10:14 | PROVIDERS: ATTEND Pediatrics | DX: Z20.822 Contact with and (suspected) exposure to COVID-19 (principal) ==

== ENCOUNTER → 2025-08-11 | Outpatient (CLI) | payer OTHER ==
[~2025-08-11] MED LIST changes: -IBUP-1022 PO; +IBUP600T42 PO
[2025-08-11 10:06] LABS: BASO # 0.1 10^3/uL (0.0-0.2); BASO % 0.8 % (0.0-1.0); EOS # 0.1 10^3/uL (0.0-0.5); EOS % 1.2 % (0.0-3.0); LYMPH # 2.0 10^3/uL (1.5-5.0); LYMPH % 26.6 % (24.0-44.0); MONO # 0.5 10^3/uL (0.0-0.8); MONO % 6.0 % (2.0-8.0); NEUTROPHILS # 4.9 10^3/uL (1.5-8.5); NEUTROPHILS % 65.1 % (36.0-66.0); PLATELET COUNT, AUTOMATED 310 10^3/uL (150-450)
[2025-08-11 10:35] LABS: ESTIMATED AVERAGE GLUCOSE 114.0 MG/DL (60-110)
[2025-08-11 10:38] LABS: ALT/SGPT 54 U/L (7.0-40); AST/SGOT 37 U/L (<34); CALCIUM LEVEL 9.0 MG/DL (8.5-10.1); CARBON DIOXIDE LEVEL 25 MMOL/L (20-31); CHLORIDE LEVEL 104 MMOL/L (98-107); CHOLESTEROL LEVEL 220 MG/DL (<200); CHOLESTEROL RISK RATIO 5.39 (<5); CREATININE FOR GFR 0.94 MG/DL (0.55-1.30); GLOMERULAR FILTRATION RATE 76.3 (>58); LDL CHOLESTEROL 126.4 MG/DL (<100); NON-HDL-C 179.2 MG/DL; POTASSIUM SERUM 3.9 MMOL/L (3.5-5.1); SODIUM LEVEL 139 MMOL/L (136-145); TRIGLYCERIDES LEVEL 264 MG/DL (<150)
[2025-08-11 10:39] LABS: TOTAL 25(OH) VITAMIN D 21.0 NG/ML (20.0-100.0)
[2025-08-11 11:10] LABS: HIV 1&2 SCREEN NEGATIVE (NEGATIVE)
[2025-08-11 11:18] LABS: HEPATITIS C VIRUS ABY INDEX < 0.02 INDEX (<0.8)
[2025-08-11 11:23] LABS: APPEARANCE, URINE CLOUDY (CLEAR); BACTERIA, URINE AUTO 2+ (NEGATIVE); BILIRUBIN, URINE AUTO NEGATIVE (NEGATIVE); BLOOD, URINE BLOOD 2+ (NEGATIVE); GLUCOSE, URINE (UA) AUTO NEGATIVE (NEGATIVE); KETONE, URINE AUTO NEGATIVE (NEGATIVE); LEUKOCYTE ESTERASE, URINE AUTO 3+ (NEGATIVE); MUCUS, URINE SMALL (NEGATIVE); NITRITE, URINE AUTO NEGATIVE (NEGATIVE); PROTEIN, URINE AUTO 1+ mg/dL (NEGATIVE); RBC, URINE AUTO 11 /HPF (0-3); SPECIFIC GRAVITY URINE AUTO 1.019 (1.002-1.035); SQUAMOUS EPITHELIAL CELL UR AU 13 /HPF (0-6); UROBILINOGEN, URINE AUTO 0.2 mg/dL (0.0-2.0); WBC, URINE AUTO 13 /HPF (0-3)
[2025-08-11 11:25] LABS: CREATININE, URINE 191.5 MG/DL; MALB URINE SIEMENS 71.0 MG/L; MAU/CREAT RATIO 37.0 MCG/MG (0.0-30.0)
== END ==
LOC: M LAB 09:00
PROVIDERS: ATTEND Physician Assistant
DX: Z11.9 Encounter for screening for infectious and parasitic diseases, unspecified (principal); E66.9 Obesity, unspecified; E55.9 Vitamin D deficiency, unspecified; R03.0 Elevated blood-pressure reading, without diagnosis of hypertension